=== PATIENT | male | born 1960 | race Caucasian/White ===

== ENCOUNTER → 2017-03-22 | Outpatient (CLI) | payer OTHER ==
[~2017-03-22] MED LIST: DEXL60CA PO; HYDR-3240 PO; LANS30CA PO; MAGN250T8 PO; MELO-184 PO; OLME40TA PO; RANI150T8 PO
[2017-03-22 07:44] LABS: ASPARTATE AMINO TRANSFERASE 19 U/L (15-37); BLOOD UREA NITROGEN 24 mg/dL (7-18)
== END | disposition home or self-care (01) ==
LOC: LAB 07:11
PROVIDERS: ATTEND Internal Medicine Cardiovascular Disease
DX: E78.5 Hyperlipidemia, unspecified (principal); I10 Essential (primary) hypertension
CPT/HCPCS: 36415; 80053; 80061

== ENCOUNTER 2017-04-30 08:20 | Emergency (ER) | payer OTHER ==
[~2017-04-30] VITALS: Ht 180.3 cm; Wt 92.0 kg
[2017-04-30] MEDS ORDERED: SODIUM CHLORIDE 0.9% 1,000 ML IV ONE (08:43)
[2017-04-30] MEDS ORDERED: SODIUM CHLORIDE 0.9% 1,000ML IVBOLUS ONE (09:00)
[2017-04-30] MEDS ORDERED: CEFTAROLINE 600 MG in SODIUM CHLORIDE 0.9% 100 ML IV ONE (09:00)
[2017-04-30 09:27] LABS: BLOOD UREA NITROGEN 20 mg/dL (7-18)
[2017-04-30] MEDS ORDERED: HYDROcodone/APAP 5/325 TABLET ONE (09:36)
[2017-04-30] MEDS ORDERED: HYDROcodone/APAP 5/325 TABLET PO ONE (10:00)
[2017-04-30 11:05] VITALS: BP 127/70
== END 2017-04-30 11:07 | disposition home or self-care (01) ==
LOC: ED 08:46
DX: L03.114 Cellulitis of left upper limb (principal); I10 Essential (primary) hypertension
CPT/HCPCS: 36415; 73080; 80048; 82040; 85025; 87040; 96365; 99285; J0712; J7030

== ENCOUNTER → 2017-06-24 | Outpatient (CLI) | payer OTHER ==
[~2017-06-24] MED LIST changes: -DEXL60CA PO; +DEXL60CA2 PO; -MELO-184 PO; +MELO15TA24 PO; -OLME40TA PO; +OLME40TA12 PO
== END | disposition home or self-care (01) ==
LOC: LAB 11:48
PROVIDERS: ATTEND Physician Assistant Surgical
DX: N39.0 Urinary tract infection, site not specified (principal)
CPT/HCPCS: 87077; 87086

== ENCOUNTER → 2017-09-04 | Outpatient (CLI) | payer OTHER | END | disposition home or self-care (01) | LOC: LAB 08:47 | PROVIDERS: ATTEND Urology | DX: N39.0 Urinary tract infection, site not specified (principal) | CPT/HCPCS: 87077; 87086; 87186 ==

== ENCOUNTER → 2017-09-20 | Outpatient (CLI) | payer OTHER ==
[2017-09-20 08:36] LABS: ASPARTATE AMINO TRANSFERASE 27 U/L (15-37); BLOOD UREA NITROGEN 26 mg/dL (7-18)
== END | disposition home or self-care (01) ==
LOC: LAB 07:56
PROVIDERS: ATTEND Internal Medicine Cardiovascular Disease
DX: I10 Essential (primary) hypertension (principal); E78.2 Mixed hyperlipidemia
CPT/HCPCS: 36415; 80053; 80061

== ENCOUNTER → 2017-10-31 | Outpatient (CLI) | payer OTHER | END | disposition home or self-care (01) | LOC: CFH 08:10 | PROVIDERS: ATTEND Family Medicine | DX: M75.101 Unspecified rotator cuff tear or rupture of right shoulder, not specified as traumatic (principal); M25.711 Osteophyte, right shoulder; Z98.890 Other specified postprocedural states ==

== ENCOUNTER → 2017-12-11 | Outpatient (CLI) | payer OTHER ==
[2017-12-11 09:44] LABS: ANION GAP 5 mmol/L (5-15); CALCIUM 8.4 mg/dL (8.5-10.1); CHLORIDE 111 mmol/L (98-107); CREATININE 1.25 mg/dL (0.7-1.3)
[2017-12-11 09:48] LABS: PSA SCREEN 1.04 ng/mL (0.00-4.00)
== END | disposition home or self-care (01) ==
LOC: LAB 09:15
PROVIDERS: ATTEND Urology
DX: Z12.5 Encounter for screening for malignant neoplasm of prostate (principal)
CPT/HCPCS: 36415; 80048; 87077; 87086; G0103; 87186

== ENCOUNTER 2018-04-18 07:26 | Inpatient (IN) | payer OTHER ==
[~2018-04-18] VITALS: Ht 180.3 cm; Wt 94.0 kg
[~2018-04-18 07:26] MED LIST changes: +RANI150T23 PO; -RANI150T8 PO
[2018-04-18] MEDS ORDERED: SODIUM CHLORIDE FLUSH 10ML SYR IVF ONE (08:00)
[2018-04-18] MEDS ORDERED: MORPHINE SULFATE 4 MG/ML, 1ML IVPush PRN ×2 (08:00→12:00)
[2018-04-18] MEDS ORDERED: SODIUM CHLORIDE 0.9% 1,000ML IV ONE (08:00)
[2018-04-18] MEDS ORDERED: ONDANSETRON ODT 4 MG PO ONE (08:00)
[2018-04-18] MEDS ORDERED: ONDANSETRON ODT 4 MG ONE (08:01)
[2018-04-18] MEDS ORDERED: MORPHINE SULFATE 4 MG/ML, 1ML ONE (08:02)
[2018-04-18] MEDS ORDERED: CYCL-259 PO (08:30)
[2018-04-18] MEDS ORDERED: ASPI1TAB31 PO (08:30)
[2018-04-18] MEDS ORDERED: [UNRECOGNIZED DRUG - OTHER] PO (08:30)
[2018-04-18 08:45] LABS: BASOPHILS # (AUTO) 0.01 x10^3/uL (0-0.1); BASOPHILS % (AUTO) 0 % (0-1); EOSINOPHILS # (AUTO) 0.04 x10^3/uL (0-0.4); EOSINOPHILS % (AUTO) 0 % (1-7); LYMPHOCYTES # (AUTO) 0.45 x10^3/uL (1-3.4); LYMPHOCYTES % (AUTO) 4 % (22-44); MD NO; MEAN CORPUSCULAR HEMOGLOBIN 30.8 pg (27.5-34.5); MEAN CORPUSCULAR HGB CONC 34.6 g/dL (33.2-36.2); MEAN CORPUSCULAR VOLUME 89.1 fL (81-97); MEAN PLATELET VOLUME 7.8 fL (7.4-10.4); MONOCYTES # (AUTO) 0.58 x10^3/uL (0.2-0.8); MONOCYTES % (AUTO) 5 % (2-9); NEUTROPHILS # (AUTO) 10.85 x10^3/uL (1.8-6.8); NEUTROPHILS % (AUTO) 91 % (42-75); PLATELET COUNT 171 x10^3/uL (130-400); RED BLOOD COUNT 5.04 x10^6/uL (4.38-5.82); RED CELL DISTRIBUTION WIDTH 13.3 % (9.4-14.8)
[2018-04-18 08:48] LABS: CULTURE INDICATED? YES; MICROSCOPIC INDICATED
[2018-04-18 08:54] LABS: ALANINE AMINOTRANSFERASE 37 U/L (12-78); ALBUMIN 3.7 g/dL (3.4-5.0); ANION GAP 8 mmol/L (5-15); CALCIUM 9.3 mg/dL (8.5-10.1); CHLORIDE 103 mmol/L (98-107)
[2018-04-18 08:56] LABS: ALKALINE PHOSPHATASE 100 U/L (45-117); BILIRUBIN,TOTAL 1.4 mg/dL (0.2-1.0); TOTAL PROTEIN 8.3 g/dL (6.4-8.2)
[2018-04-18] MEDS ORDERED: CEFTRIAXONE PMX 1GM/50ML 50 ML ONE (09:07)
[2018-04-18] MEDS ORDERED: CEFTRIAXONE 1,000 MG in SODIUM CHLORIDE 0.9% 50 ML IV ONE ×2 (09:30)
[2018-04-18] MEDS ORDERED: HYDROmorphone 1 MG/ML, 1ML IV ONE (09:30)
[2018-04-18] MEDS ORDERED: KETOROLAC 30 MG/1 ML ONE (09:35)
[2018-04-18] MEDS ORDERED: KETOROLAC 30 MG/1 ML IVPush ONE (10:00)
[2018-04-18] MEDS ORDERED: HYDROmorphone 2 MG/ML, 1ML ONE (10:36)
[2018-04-18] MEDS ORDERED: LIDOCAINE-MPF 2% ,5ML ONE (11:35)
[2018-04-18] MEDS ORDERED: PROPOFOL 10 MG/ML, 20ML ONE (11:35)
[2018-04-18] MEDS ORDERED: FENTANYL PF 100 MCG/2ML ONE (11:38)
[2018-04-18] MEDS ORDERED: MIDAZOLAM 1 MG/ML, 2ML ONE (11:38)
[2018-04-18] MEDS ORDERED: CEFTRIAXONE 1,000 MG ONE (11:57)
[2018-04-18] MEDS ORDERED: FENTANYL PF 100 MCG/2ML IV PRN (12:00)
[2018-04-18] MEDS ORDERED: OXYcodone 5 MG/5 ML ORAL.SOL UDC PO PRN (12:00)
[2018-04-18] MEDS ORDERED: DICLOFENAC 50 MG TABLET.DR PO PRN (12:00)
[2018-04-18] MEDS ORDERED: METOPROLOL 1 MG/ML, 5ML IV PRN (12:00)
[2018-04-18] MEDS ORDERED: PROMETHAZINE 25 MG/ML, 1ML IV PRN (12:00)
[2018-04-18] MEDS ORDERED: DOCUSATE 100 MG CAPSULE PO PRN (12:00)
[2018-04-18] MEDS ORDERED: LABETALOL 5MG/ML, 20ML IV PRN (12:00)
[2018-04-18] MEDS ORDERED: EPHEDRINE 50 MG/ML, 1ML IVPush PRN (12:00)
[2018-04-18] MEDS ORDERED: ONDANSETRON 2MG/ML, 2ML IVPush PRN (12:00)
[2018-04-18] MEDS ORDERED: ONDANSETRON ODT 4 MG PO PRN (12:00)
[2018-04-18] MEDS ORDERED: ALBUTEROL SULFATE 2.5 MG/3 ML NPPB PRN (12:00)
[2018-04-18] MEDS ORDERED: ONDANSETRON ODT 8 MG PO PRN (12:00)
[2018-04-18] MEDS ORDERED: LABETALOL 5MG/ML, 20ML IVPush PRN (12:00)
[2018-04-18] MEDS ORDERED: MEPERIDINE/PF 25MG/0.5ML IVPush PRN (12:00)
[2018-04-18] MEDS ORDERED: hydrALAzine 20 MG/ML, 1ML IV PRN (12:00)
[2018-04-18] MEDS ORDERED: ACETAMINOPHEN 325 MG TABLET PO PRN ×2 (12:00)
[2018-04-18] MEDS ORDERED: DEXAMETHASONE 4 MG/ML, 1ML ONE (12:06)
[2018-04-18] MEDS ORDERED: METOCLOPRAMIDE 5 MG/ML, 2ML ONE (12:06)
[2018-04-18] MEDS ORDERED: ONDANSETRON 2MG/ML, 2ML ONE (12:27)
[2018-04-18] MEDS ORDERED: MEPERIDINE/PF 50 MG/ML ONE (13:31)
[2018-04-18] MEDS ORDERED: OXYcodone 5 MG/5 ML ORAL.SOL UDC ONE (13:52)
[2018-04-18] MEDS: SODIUM CHLORIDE 0.9% 1,000 ML IV SCH ×2 (14:36→20:53)
[2018-04-18] MEDS ORDERED: OMNIPAQUE 350 MG/ML, 50 ML BOTTLE ONE (15:52)
[2018-04-18 19:42] VITALS: BP 116/76
[2018-04-18] MEDS: morphine SULFATE 10 MG/ML, 1ML IVPush PRN (19:49)
[2018-04-19 00:21] VITALS: BP 97/61
[2018-04-19 03:52] VITALS: BP 103/66
[2018-04-19] MEDS: morphine SULFATE 10 MG/ML, 1ML IVPush PRN (04:11)
[2018-04-19] MEDS: SODIUM CHLORIDE 0.9% 1,000 ML IV SCH (04:18)
[2018-04-19 05:21] LABS: ANION GAP 7 mmol/L (5-15); CHLORIDE 109 mmol/L (98-107)
[2018-04-19 05:24] LABS: BASOPHILS % (AUTO) 0 % (0-1); EOSINOPHILS # (AUTO) 0.02 x10^3/uL (0-0.4); EOSINOPHILS % (AUTO) 0 % (1-7); LYMPHOCYTES # (AUTO) 0.52 x10^3/uL (1-3.4); LYMPHOCYTES % (AUTO) 6 % (22-44); MD NO; MEAN CORPUSCULAR HEMOGLOBIN 30.5 pg (27.5-34.5); MEAN CORPUSCULAR HGB CONC 34.1 g/dL (33.2-36.2); MEAN CORPUSCULAR VOLUME 89.3 fL (81-97); MEAN PLATELET VOLUME 7.8 fL (7.4-10.4); MONOCYTES # (AUTO) 0.64 x10^3/uL (0.2-0.8); MONOCYTES % (AUTO) 7 % (2-9); NEUTROPHILS # (AUTO) 7.75 x10^3/uL (1.8-6.8); NEUTROPHILS % (AUTO) 87 % (42-75); PLATELET COUNT 166 x10^3/uL (130-400); RED BLOOD COUNT 3.93 x10^6/uL (4.38-5.82); RED CELL DISTRIBUTION WIDTH 13.7 % (9.4-14.8)
[2018-04-19 07:32] VITALS: BP 98/60
[2018-04-19] MEDS ORDERED: PANTOPROZOLE 40MG TABLET PO SCH (09:00)
[2018-04-19] MEDS ORDERED: CEFTRIAXONE PMX 1GM/50ML 50 ML IV SCH (09:00)
[2018-04-19] MEDS ORDERED: ASA/APAP/ CAFFEINE TABLET PO PRN (09:00)
[2018-04-19] MEDS ORDERED: SENNA/DOCUSATE TABLET PO SCH (09:00)
[2018-04-19] MEDS ORDERED: CEFTRIAXONE 1,000 MG in SODIUM CHLORIDE 0.9% 50 ML IV SCH (09:00)
[2018-04-19] MEDS: VALSARTAN 320 MG TABLET PO SCH ×2 (09:26→09:29)
[2018-04-19] MEDS ORDERED: HYDROcodone/APAP 5/325 TABLET PO PRN (11:30)
[2018-04-19] MEDS ORDERED: SODIUM CHLORIDE 0.9% 1,000 ML IV SCH (11:37)
[2018-04-19] MEDS ORDERED: TRAM50TA2 PO (12:49)
[2018-04-19] MEDS ORDERED: CIPR500T87 PO (12:49)
[2018-04-19 13:30] VITALS: BP 107/66
[2018-04-19] MEDS ORDERED: CIPROFLOXACIN 500 MG TABLET PO SCH (21:00)
== END 2018-04-19 13:32 | disposition home or self-care (01) | DRG 690 ==
LOC: ED 08:14 → EDIP 11:01 → 4NOR 14:23
PROVIDERS: ADMIT Hospitalist; ATTEND Hospitalist
PROC: BT1F1ZZ Fluoroscopy of Left Kidney, Ureter and Bladder using Low Osmolar Contrast (ICD-10-PCS; 2018-04-18)
PROC: 0T778DZ Dilation of Left Ureter with Intraluminal Device, Via Natural or Artificial Opening Endoscopic (ICD-10-PCS; principal; 2018-04-18 12:00)
DX: N13.6 Pyonephrosis (principal); E78.5 Hyperlipidemia, unspecified; N10 Acute pyelonephritis; I10 Essential (primary) hypertension; K21.9 Gastro-esophageal reflux disease without esophagitis; K44.9 Diaphragmatic hernia without obstruction or gangrene; K59.00 Constipation, unspecified; N26.1 Atrophy of kidney (terminal); N31.9 Neuromuscular dysfunction of bladder, unspecified; Z90.49 Acquired absence of other specified parts of digestive tract; D49.2 Neoplasm of unspecified behavior of bone, soft tissue, and skin; Z88.2 Allergy status to sulfonamides; Z88.8 Allergy status to other drugs, medicaments and biological substances
CPT/HCPCS: 36415; 74176; 74420; 80048; 80053; 81001; 83605; 83690; 84145; 85025; 87040; 87077; 87086; 87186; J0696; J1100; J1170; J1885; J2175; J2250; J2405; J2704; J3010; J3490; Q0162; Q9967; C1758; C1769; C2617; J2270; J2765; J7030

== ENCOUNTER → 2018-05-22 | Outpatient (CLI) | payer OTHER ==
[~2018-05-22] MED LIST changes: +ASPI1TAB31 PO; +CEFAZOLIN 1,000 MG ONE; +CIPR500T87 PO; +CYCL-259 PO; +DEXAMETHASONE 4 MG/ML, 1ML ONE; +DICL75TA2 PO; +FENTANYL PF 100 MCG/2ML ONE; +KETOROLAC 30 MG/1 ML ONE; +ONDANSETRON 2MG/ML, 2ML ONE; +PROPOFOL 10 MG/ML, 20ML ONE; +TRAM50TA2 PO; +[UNRECOGNIZED DRUG - OTHER] PO
[2018-05-22 09:27] LABS: MICROSCOPIC AUTO
[2018-05-22 09:36] LABS: ALANINE AMINOTRANSFERASE 62 U/L (12-78); ALBUMIN 4.1 g/dL (3.4-5.0); ANION GAP 11 mmol/L (5-15); CALCIUM 8.5 mg/dL (8.5-10.1); CHLORIDE 108 mmol/L (98-107); CREATININE 1.11 mg/dL (0.7-1.3)
[2018-05-22 09:40] LABS: ALKALINE PHOSPHATASE 74 U/L (45-117); BILIRUBIN,TOTAL 0.7 mg/dL (0.2-1.0); PSA SCREEN 1.23 ng/mL (0.00-4.00); TOTAL PROTEIN 8.2 g/dL (6.4-8.2)
== END | disposition home or self-care (01) ==
LOC: STAR 08:41
PROVIDERS: ATTEND Urology
DX: Z01.818 Encounter for other preprocedural examination (principal); N20.0 Calculus of kidney
CPT/HCPCS: 36415; 80053; 81001; 87077; 87086; 87186; 93005; G0103

== ENCOUNTER 2018-05-27 11:59 | Day surgery (SDC) | payer OTHER ==
[~2018-05-27] VITALS: Ht 180.3 cm; Wt 89.0 kg
[~2018-05-27 11:59] MED LIST changes: -CEFAZOLIN 1,000 MG ONE; -DEXAMETHASONE 4 MG/ML, 1ML ONE; -FENTANYL PF 100 MCG/2ML ONE; -KETOROLAC 30 MG/1 ML ONE; -ONDANSETRON 2MG/ML, 2ML ONE; -PROPOFOL 10 MG/ML, 20ML ONE
[2018-05-27] MEDS ORDERED: LACTATED RINGERS 1,000 ML IV SCH (12:26)
[2018-05-27 12:44] VITALS: BP 156/95
[2018-05-27] MEDS ORDERED: MIDAZOLAM 1 MG/ML, 2ML ONE (13:03)
[2018-05-27] MEDS ORDERED: FENTANYL PF 100 MCG/2ML ONE ×2 (13:04→14:42)
[2018-05-27] MEDS ORDERED: CEFAZOLIN 1,000 MG ONE ×2 (13:06)
[2018-05-27] MEDS ORDERED: PROPOFOL 10 MG/ML, 20ML ONE ×2 (13:06)
[2018-05-27] MEDS ORDERED: ONDANSETRON 2MG/ML, 2ML ONE (13:32)
[2018-05-27] MEDS ORDERED: DEXAMETHASONE 4 MG/ML, 1ML ONE (13:32)
[2018-05-27] MEDS ORDERED: CEFTRIAXONE 1,000 MG ONE (13:45)
[2018-05-27] MEDS ORDERED: GENTAMICIN 80 MG/2 ML ONE (13:45)
[2018-05-27] MEDS ORDERED: ACETAMINOPHEN 325 MG TABLET PO PRN (14:30)
[2018-05-27] MEDS ORDERED: OXYcodone 5 MG/5 ML ORAL.SOL UDC PO PRN (14:30)
[2018-05-27] MEDS ORDERED: PROMETHAZINE 25 MG/ML, 1ML IV PRN (14:30)
[2018-05-27] MEDS ORDERED: ACETAMINOPHEN 650 MG/20.3 ML UDC ONE (14:42)
[2018-05-27] MEDS ORDERED: OXYcodone 5 MG/5 ML ORAL.SOL UDC ONE (14:42)
[2018-05-27] MEDS ORDERED: ACETAMINOPHEN 325 MG TABLET ONE (14:42)
[2018-05-27] MEDS: FENTANYL PF 100 MCG/2ML IV PRN ×3 (14:46→15:29)
[2018-05-27] MEDS ORDERED: MEPERIDINE/PF 50 MG/ML ONE (14:51)
[2018-05-27] MEDS: MEPERIDINE/PF 25MG/0.5ML IVPush PRN ×2 (14:59→15:23)
[2018-05-27] MEDS ORDERED: HYDROcodone/APAP 5/325 TABLET PO PRN (15:00)
[2018-05-27] MEDS ORDERED: OMNIPAQUE 350 MG/ML, 50 ML BOTTLE ONE (16:10)
== END 2018-05-27 17:20 | disposition home or self-care (01) ==
LOC: OUT 11:59
PROVIDERS: ATTEND Urology
DX: N20.0 Calculus of kidney (principal); I10 Essential (primary) hypertension; K21.9 Gastro-esophageal reflux disease without esophagitis; E78.5 Hyperlipidemia, unspecified; Z88.1 Allergy status to other antibiotic agents; Z85.828 Personal history of other malignant neoplasm of skin; Z98.890 Other specified postprocedural states; Z79.899 Other long term (current) drug therapy; Z90.49 Acquired absence of other specified parts of digestive tract; Z88.8 Allergy status to other drugs, medicaments and biological substances; Z87.440 Personal history of urinary (tract) infections
CPT/HCPCS: 52310; 74420; C1769; J0690; J0696; J1100; J1580; J1885; J2175; J2250; J2405; J2704; J3010; J7120; Q9967

== ENCOUNTER → 2018-06-05 | Outpatient (CLI) | payer OTHER | END | disposition home or self-care (01) | LOC: RAD 08:59 | PROVIDERS: ATTEND Urology | DX: N20.0 Calculus of kidney (principal); Z88.2 Allergy status to sulfonamides | CPT/HCPCS: 74018 ==

== ENCOUNTER → 2018-09-24 | Outpatient (CLI) | payer OTHER ==
[2018-09-24 08:56] LABS: ALANINE AMINOTRANSFERASE 41 U/L (12-78); ALBUMIN 4.1 g/dL (3.4-5.0); ANION GAP 9 mmol/L (5-15); CALCIUM 8.5 mg/dL (8.5-10.1); CHLORIDE 111 mmol/L (98-107); CREATININE 1.01 mg/dL (0.7-1.3)
[2018-09-24 08:58] LABS: ALKALINE PHOSPHATASE 71 U/L (45-117); BILIRUBIN,TOTAL 0.7 mg/dL (0.2-1.0); TOTAL PROTEIN 7.4 g/dL (6.4-8.2)
== END | disposition home or self-care (01) ==
LOC: STAR 07:17
PROVIDERS: ATTEND Orthopaedic Surgery
DX: Z01.818 Encounter for other preprocedural examination (principal); M19.012 Primary osteoarthritis, left shoulder
CPT/HCPCS: 36415; 80053; 93005

== ENCOUNTER → 2018-11-25 | Outpatient (CLI) | payer OTHER ==
[~2018-11-25] MED LIST changes: -DICL75TA2 PO; +DICL75TA3 PO
[2018-11-25 13:54] LABS: ALANINE AMINOTRANSFERASE 56 U/L (12-78); ALBUMIN 4.1 g/dL (3.4-5.0); ANION GAP 6 mmol/L (5-15); CHLORIDE 110 mmol/L (98-107)
[2018-11-25 13:59] LABS: ALKALINE PHOSPHATASE 88 U/L (45-117); BILIRUBIN,TOTAL 0.7 mg/dL (0.2-1.0); CHOL/HDL RATIO 4.2; CHOLESTEROL, TOTAL 216 mg/dL (140-239); HDL CHOL % 24 % (26-37); HDL CHOLESTEROL (DIRECT) 51 mg/dL (40-60); LDL CHOLESTEROL,CALCULATED 134 mg/dL (54-169); LDL/HDL RATIO 2.6 (0.5-3.0); PSA SCREEN 0.91 ng/mL (0.00-4.00); TOTAL PROTEIN 7.7 g/dL (6.4-8.2); TRIGLYCERIDES 157 mg/dL (50-200); VLDL CHOLESTEROL 31 mg/dL (0-25)
== END | disposition home or self-care (01) ==
LOC: CFH 08:32
PROVIDERS: ATTEND Internal Medicine
DX: I10 Essential (primary) hypertension (principal); E78.2 Mixed hyperlipidemia; N40.1 Benign prostatic hyperplasia with lower urinary tract symptoms; Z80.42 Family history of malignant neoplasm of prostate
CPT/HCPCS: 36415; 80053; 80061; G0103

== ENCOUNTER → 2019-01-13 | Outpatient (CLI) | payer OTHER ==
[~2019-01-13] MED LIST changes: +GADOBUTROL 10 MMOL/10 ML PFS ONE
== END | disposition home or self-care (01) ==
LOC: EDSTATUS 01-04 08:00 → CFH 09:33
PROVIDERS: ATTEND Family Medicine
DX: M51.36 Other intervertebral disc degeneration, lumbar region (principal); M48.061 Spinal stenosis, lumbar region without neurogenic claudication; M51.26 Other intervertebral disc displacement, lumbar region; M25.78 Osteophyte, vertebrae; G95.89 Other specified diseases of spinal cord
CPT/HCPCS: 72158; 82565; A9585

== ENCOUNTER → 2019-03-24 | Outpatient (CLI) | payer OTHER ==
[~2019-03-24] MED LIST changes: -GADOBUTROL 10 MMOL/10 ML PFS ONE
== END | disposition home or self-care (01) ==
LOC: CFH 08:11
PROVIDERS: ATTEND Orthopaedic Surgery
DX: M51.37 Other intervertebral disc degeneration, lumbosacral region (principal); M43.16 Spondylolisthesis, lumbar region; M47.27 Other spondylosis with radiculopathy, lumbosacral region; Z88.1 Allergy status to other antibiotic agents; Z88.8 Allergy status to other drugs, medicaments and biological substances
CPT/HCPCS: 72120

== ENCOUNTER 2019-05-22 13:36 | Observation (INO) | payer OTHER ==
[~2019-05-22] VITALS: Ht 180.3 cm; Wt 91.3 kg
[~2019-05-22 13:36] MED LIST changes: +RANI-467 PO; -RANI150T23 PO
--- NOTE | 2019-05-22 13:50 | NUR ---
PT AMBULATORY TO ED ROOM 26; GAIT STEADY.
--- NOTE | 2019-05-22 13:53 | NUR ---
DR BARRETT BS FOR EXAM. PT'S SPOUSE IN ROOM. PT A&OX4, RESP EVEN & UNLABORED, SPEECH CLEAR, FACE FLUSHED. VO DR BARRETT: REPEAT EKG
[2019-05-22] MEDS ORDERED: DICL-249 PO (14:00)
--- NOTE | 2019-05-22 14:04 | NUR ---
PT C/O INTERMITTENT SHARP, CRAMPING LT CHEST. STARTED EARLY THIS AM AFTER RETURNING FROM WORK. ADMITS TO HAVING A STRESSFUL TIME RECENTLY. DENIES NAUSEA/VOMITING. TOOK A BITE OF ASA 325MG TAB 1315. CARDIAC & VS MONITORING EQUIPMENT ON. SIDE RAILS UP X 2, CALL LIGHT W/IN REACH.
[2019-05-22] MEDS ORDERED: MORPHINE SULFATE 4 MG/ML, 1ML IVPush PRN (14:30)
[2019-05-22] MEDS ORDERED: ONDANSETRON 2MG/ML, 2ML IVPush ONE (14:30)
[2019-05-22] MEDS ORDERED: SODIUM CHLORIDE FLUSH 10ML SYR IVF ONE (14:30)
[2019-05-22 14:31] LABS: BASOPHILS # (AUTO) 0.03 x10^3/uL (0-0.1); BASOPHILS % (AUTO) 1 % (0-1); EOSINOPHILS # (AUTO) 0.17 x10^3/uL (0-0.4); EOSINOPHILS % (AUTO) 2 % (1-7); LYMPHOCYTES # (AUTO) 1.46 x10^3/uL (1-3.4); LYMPHOCYTES % (AUTO) 21 % (22-44); MD NO; MEAN CORPUSCULAR HEMOGLOBIN 31.4 pg (27.5-34.5); MEAN CORPUSCULAR VOLUME 92.4 fL (81-97); MEAN PLATELET VOLUME 8.4 fL (7.4-10.4); MONOCYTES # (AUTO) 0.48 x10^3/uL (0.2-0.8); MONOCYTES % (AUTO) 7 % (2-9); NEUTROPHILS # (AUTO) 4.74 x10^3/uL (1.8-6.8); NEUTROPHILS % (AUTO) 69 % (42-75); PLATELET COUNT 187 x10^3/uL (130-400); RED BLOOD COUNT 4.89 x10^6/uL (4.38-5.82); RED CELL DISTRIBUTION WIDTH 14.4 % (9.4-14.8)
[2019-05-22] MEDS ORDERED: MORPHINE SULFATE 4 MG/ML, 1ML ONE (14:40)
[2019-05-22] MEDS ORDERED: ONDANSETRON 2MG/ML, 2ML ONE (14:40)
[2019-05-22 14:42] LABS: ALBUMIN 4.2 g/dL (3.4-5.0); CALCIUM 8.7 mg/dL (8.5-10.1)
[2019-05-22 14:46] LABS: CREATININE 1.29 mg/dL (0.7-1.3); TROPONIN I < 0.015 ng/mL (0.000-0.045)
[2019-05-22 14:59] LABS: ANION GAP 7 mmol/L (5-15); CHLORIDE 111 mmol/L (98-107)
--- NOTE | 2019-05-22 15:12 | NUR ---
DR BARRETT BS DISCUSSING TEST RESULTS. SPOUSE IN ROOM.
[2019-05-22] MEDS ORDERED: MAALOX/HYOSCYAMINE/LIDOCAINE 45 ML BTL PO ONE (15:30)
[2019-05-22] MEDS ORDERED: MAALOX/HYOSCYAMINE/LIDOCAINE 45 ML BTL ONE (15:53)
--- NOTE | 2019-05-22 16:34 | NUR ---
[facility] AND SPOUSE IN ROOM. PT RESTING COMFORTABLE, SITTING UP. PAIN 3-4/10 INTERMITTINGLY CP. CALL LIGHT WITHIN REACH.
[2019-05-22] MEDS ORDERED: morphine SULFATE 10 MG/ML, 1ML IVPush PRN (17:00)
[2019-05-22] MEDS ORDERED: SODIUM CHLORIDE FLUSH 10ML SYR IVF PRN (17:00)
[2019-05-22] MEDS ORDERED: ONDANSETRON 2MG/ML, 2ML IVPush PRN (17:00)
[2019-05-22] MEDS ORDERED: CYCLOBENZAPRINE 10 MG TABLET PO PRN (17:00)
[2019-05-22] MEDS ORDERED: ACETAMINOPHEN 325 MG TABLET PO PRN (17:00)
[2019-05-22] MEDS ORDERED: NITROGLYCERIN 0.4 MG BOTTLE (25 TABS) SL PRN (17:00)
[2019-05-22] MEDS ORDERED: hydrALAzine 20 MG/ML, 1ML IVPush PRN (17:00)
[2019-05-22] MEDS ORDERED: ENOXAPARIN 40 MG/0.4 ML SQ SCH (17:00)
[2019-05-22] MEDS ORDERED: TEMAZEPAM 15 MG CAPSULE PO PRN (17:00)
--- NOTE | 2019-05-22 17:24 | NUR ---
report given to break patrick hidalgo/erma. pt care transfered.
--- NOTE | 2019-05-22 18:02 | NUR ---
called report to FARAZ ROWE, going to room #528. VSS.
[2019-05-22 19:21] VITALS: BP 127/80
[2019-05-22 20:40] LABS: TROPONIN I < 0.015 ng/mL (0.000-0.045)
[2019-05-23 00:40] VITALS: BP 111/67
[2019-05-23 02:37] LABS: TROPONIN I < 0.015 ng/mL (0.000-0.045)
[2019-05-23 02:42] LABS: CHOL/HDL RATIO 3.1; LDL/HDL RATIO 1.7 (0.5-3.0)
[2019-05-23 06:35] VITALS: BP 125/82
[2019-05-23] MEDS ORDERED: PANTOPROZOLE 40MG TABLET PO SCH (09:00)
[2019-05-23] MEDS ORDERED: LOSARTAN 50MG TABLET PO SCH (09:00)
[2019-05-23] MEDS ORDERED: REGADENOSON 0.4 MG/5 ML SYRINGE ONE (09:35)
[2019-05-23 13:05] VITALS: BP 127/81
[2019-05-23] MEDS ORDERED: OMEP-110 PO (14:00)
[2019-05-23] MEDS ORDERED: SIMV40TA3 PO (14:00)
[2019-05-23] MEDS ORDERED: SIMVASTATIN 40 MG TABLET PO SCH (21:00)
== END 2019-05-23 16:05 | disposition home or self-care (01) ==
LOC: ED 14:45 → SUATTDRO 16:03 → EDIP 16:49 → INTOOBSV 17:19 → UNDOADMOB 17:19 → EDIP 17:31 → 5SO 17:31 → UNDODISOB 05-23 16:05
PROVIDERS: ADMIT Internal Medicine; ATTEND Internal Medicine
DX: R07.89 Other chest pain (principal); N31.9 Neuromuscular dysfunction of bladder, unspecified; I10 Essential (primary) hypertension; K21.9 Gastro-esophageal reflux disease without esophagitis; Z90.49 Acquired absence of other specified parts of digestive tract; R73.02 Impaired glucose tolerance (oral); Z95.5 Presence of coronary angioplasty implant and graft; Z87.442 Personal history of urinary calculi; Z79.82 Long term (current) use of aspirin; Z79.899 Other long term (current) drug therapy; Z88.2 Allergy status to sulfonamides; Z88.6 Allergy status to analgesic agent
CPT/HCPCS: 36415; 71045; 78452; 80048; 80061; 82040; 84443; 84484; 85025; 93005; 93017; 96372; 96374; 96375; 99284; A9502; C9898; G0378; J1650; J2270; J2405; J2785

== ENCOUNTER → 2020-02-04 | Outpatient (CLI) | payer OTHER ==
[~2020-02-04] MED LIST changes: +DICL-249 PO; +OMEP-110 PO; +SIMV40TA20 PO
== END | disposition home or self-care (01) ==
LOC: CFH 07:19
PROVIDERS: ATTEND Nurse Practitioner Family
DX: M51.37 Other intervertebral disc degeneration, lumbosacral region (principal)
CPT/HCPCS: 72110

== ENCOUNTER 2020-02-25 13:14 | Emergency (ER) | payer OTHER ==
[~2020-02-25] VITALS: Ht 180.3 cm; Wt 90.0 kg
--- NOTE | 2020-02-25 13:40 | NUR ---
PT SENT FROM GI DOCTOR AFTER EGD AND CLONOSCOPY. PROCEDURE WENT WELL, WHEN PT WOKE UP HE HAD SEVERE ABD PAIN AND VOMITTING. PT C/O GAS PAIN, NOT PASSING GAS OR BELCHING. PT GIVEN ZOFRAN AT ABOUT 1030. PT CONNECTED TO MONITORING. PIV PLACE, LABS DRAWN. (RN) AT BEDSIDE. PROVIDER AT BEDSIDE.
[2020-02-25] MEDS ORDERED: ONDANSETRON 2MG/ML, 2ML IVPush ONE (14:00)
[2020-02-25] MEDS ORDERED: morphine SULFATE 10 MG/ML, 1ML IV ONE (14:00)
[2020-02-25] MEDS ORDERED: MORPHINE SULFATE 4 MG/ML, 1ML ONE (14:13)
[2020-02-25] MEDS ORDERED: ONDANSETRON 2MG/ML, 2ML ONE (14:13)
--- NOTE | 2020-02-25 14:24 | NUR ---
MEDS ADMIN PER DEC. EKG DONE. PT WRECHING PERIODICALLY, THERE'S NOTHING TO VOMIT UP. AT BEDSIDE.
[2020-02-25 14:28] LABS: BASOPHILS # (AUTO) 0.03 x10^3/uL (0-0.1); BASOPHILS % (AUTO) 1 % (0-1); EOSINOPHILS # (AUTO) 0.07 x10^3/uL (0-0.4); EOSINOPHILS % (AUTO) 1 % (1-7); LYMPHOCYTES # (AUTO) 0.91 x10^3/uL (1-3.4); LYMPHOCYTES % (AUTO) 14 % (22-44); MD NO; MEAN CORPUSCULAR HEMOGLOBIN 30.4 pg (27.5-34.5); MEAN CORPUSCULAR VOLUME 89.6 fL (81-97); MEAN PLATELET VOLUME 8.6 fL (7.4-10.4); MONOCYTES # (AUTO) 0.27 x10^3/uL (0.2-0.8); MONOCYTES % (AUTO) 4 % (2-9); NEUTROPHILS # (AUTO) 5.29 x10^3/uL (1.8-6.8); NEUTROPHILS % (AUTO) 81 % (42-75); PLATELET COUNT 184 x10^3/uL (130-400); RED BLOOD COUNT 5.25 x10^6/uL (4.38-5.82); RED CELL DISTRIBUTION WIDTH 14.6 % (9.4-14.8)
[2020-02-25 14:29] LABS: INTERNATIONAL NORMALIZED RATIO 0.98 (0.93-1.1); PROTHROMBIN TIME 10.4 Seconds (9.6-11.5)
[2020-02-25 14:33] LABS: ALBUMIN 4.4 g/dL (3.4-5.0); ANION GAP 8 mmol/L (5-15); CALCIUM 8.9 mg/dL (8.5-10.1); CHLORIDE 111 mmol/L (98-107); CREATININE 0.99 mg/dL (0.7-1.3)
--- NOTE | 2020-02-25 14:34 | NUR ---
PT PLACED ON 2L OXYGEN VIA NC FOR SAFETY AFTER PAIN POOL COORDINATOR.
[2020-02-25 14:38] LABS: ALANINE AMINOTRANSFERASE 60 U/L (12-78); ALKALINE PHOSPHATASE 90 U/L (45-117); BILIRUBIN,TOTAL 1.1 mg/dL (0.2-1.0); TOTAL PROTEIN 7.9 g/dL (6.4-8.2); TROPONIN I < 0.015 ng/mL (0.000-0.045)
[2020-02-25] MEDS ORDERED: OMNIPAQUE 350 MG/ML, 100ML BOTTLE ONE (15:13)
--- NOTE | 2020-02-25 15:14 | NUR ---
PT BACK FROM CT. PT STATES PAIN IS BETTER AFTER PAIN MEDS. NADN. AT BEDSIDE.
--- NOTE | 2020-02-25 15:27 | NUR ---
ALL RESULTS ARE BACK AT THIS TIME. CHART UP FOR RECHECK.
--- NOTE | 2020-02-25 16:00 | NUR ---
MD AT BEDSIDE TO UPDATE PT ON POC.
[2020-02-25] MEDS ORDERED: MAALOX/HYOSCYAMINE/LIDOCAINE 45 ML BTL ONE (16:17)
--- NOTE | 2020-02-25 16:25 | NUR ---
MEDS ADMIN PER DEC. PT GIVEN CUP OF WATER FOR PO CHALLENGE.
[2020-02-25] MEDS ORDERED: MAALOX/HYOSCYAMINE/LIDOCAINE 45 ML BTL PO ONE (16:30)
--- NOTE | 2020-02-25 16:52 | NUR ---
PT ABLE TO TOLERATE KEEPING A CUP OF WATER DOWN. PASSED PO CHALLENGE.
[2020-02-25] MEDS ORDERED: METOCLOPRAMIDE 5 MG/ML, 2ML IVPush ONE (17:30)
[2020-02-25] MEDS ORDERED: METOCLOPRAMIDE 5 MG/ML, 2ML ONE (17:41)
[2020-02-25 17:46] VITALS: BP 126/81
--- NOTE | 2020-02-25 17:47 | NUR ---
PT SITTING EDGE OF BED WITH DRY HEAVES. PROVIDER AWARE. MEDS ADMIN PER DEC. AT BEDSIDE.
== END 2020-02-25 19:44 | disposition home or self-care (01) ==
LOC: ED 15:19
DX: R10.84 Generalized abdominal pain (principal); R11.2 Nausea with vomiting, unspecified; R94.31 Abnormal electrocardiogram [ECG] [EKG]; M54.9 Dorsalgia, unspecified
CPT/HCPCS: 36415; 71260; 74177; 80053; 84484; 85025; 85610; 93005; 96374; 96375; 99285; J2270; J2405; J2765; Q9967

== ENCOUNTER → 2020-04-13 | Outpatient (CLI) | payer OTHER ==
[2020-04-13 13:33] LABS: ANION GAP 7 mmol/L (5-15); CALCIUM 9.5 mg/dL (8.5-10.1); CHLORIDE 109 mmol/L (98-107)
[2020-04-13 13:34] LABS: CREATININE 1.21 mg/dL (0.7-1.3)
== END | disposition home or self-care (01) ==
LOC: CFH 07:07
PROVIDERS: ATTEND Internal Medicine Cardiovascular Disease
DX: E78.2 Mixed hyperlipidemia (principal); R07.9 Chest pain, unspecified; I10 Essential (primary) hypertension
CPT/HCPCS: 36415; 80048

== ENCOUNTER 2020-04-28 07:53 | Outpatient (CLI) | payer OTHER ==
[2020-04-28] MEDS ORDERED: LANS30CA PO (08:30)
[2020-04-28] MEDS ORDERED: GABA-826 PO (08:30)
[2020-04-28 09:23] LABS: BASOPHILS # (AUTO) 0.03 x10^3/uL (0-0.1); BASOPHILS % (AUTO) 1 % (0-1); EOSINOPHILS # (AUTO) 0.19 x10^3/uL (0-0.4); EOSINOPHILS % (AUTO) 3 % (1-7); LYMPHOCYTES # (AUTO) 1.28 x10^3/uL (1-3.4); LYMPHOCYTES % (AUTO) 22 % (22-44); MD NO; MEAN CORPUSCULAR HGB CONC 33.2 g/dL (33.2-36.2); MONOCYTES # (AUTO) 0.56 x10^3/uL (0.2-0.8); MONOCYTES % (AUTO) 9 % (2-9); NEUTROPHILS # (AUTO) 3.91 x10^3/uL (1.8-6.8); NEUTROPHILS % (AUTO) 66 % (42-75); PLATELET COUNT 172 x10^3/uL (130-400); RED BLOOD COUNT 5.09 x10^6/uL (4.38-5.82); RED CELL DISTRIBUTION WIDTH 14.1 % (9.4-14.8)
[2020-04-28 09:31] LABS: INTERNATIONAL NORMALIZED RATIO 0.93 (0.93-1.1); PROTHROMBIN TIME 9.8 Seconds (9.6-11.5)
[2020-04-28 09:34] LABS: ALANINE AMINOTRANSFERASE 50 U/L (12-78); ALBUMIN 4.4 g/dL (3.4-5.0); ANION GAP 5 mmol/L (5-15); CALCIUM 9.5 mg/dL (8.5-10.1); CHLORIDE 113 mmol/L (98-107); CREATININE 0.97 mg/dL (0.7-1.3)
[2020-04-28 09:36] LABS: ALKALINE PHOSPHATASE 86 U/L (45-117); BILIRUBIN,TOTAL 0.6 mg/dL (0.2-1.0); TOTAL PROTEIN 7.8 g/dL (6.4-8.2)
[2020-04-28 09:56] LABS: MICROSCOPIC INDICATED
[2020-05-15] MEDS ORDERED: OXYC1TAB18 PO (08:14)
== END 2020-04-28 23:59 | disposition home or self-care (01) ==
LOC: STAR 07:53
PROVIDERS: ATTEND Neurological Surgery
DX: Z01.818 Encounter for other preprocedural examination (principal); S33.140A Subluxation of L4/L5 lumbar vertebra, initial encounter; M48.061 Spinal stenosis, lumbar region without neurogenic claudication; M47.817 Spondylosis without myelopathy or radiculopathy, lumbosacral region; X58.XXXA Exposure to other specified factors, initial encounter; Y93.89 Activity, other specified; Y92.89 Other specified places as the place of occurrence of the external cause; Y99.8 Other external cause status
CPT/HCPCS: 36415; 72110; 80053; 81001; 85025; 85610; 85730; 87077; 87086; 87186

== ENCOUNTER 2020-05-09 08:53 | Inpatient (IN) | payer OTHER ==
[~2020-05-09] VITALS: Ht 180.3 cm; Wt 93.8 kg
[~2020-05-09 08:53] MED LIST changes: +GABA-826 PO
[2020-05-09] MEDS ORDERED: CHLORHEXIDINE 15 ML UDC MM STA (09:11)
[2020-05-09] MEDS ORDERED: LIDOCAINE-MPF 1%, 2ML INFIL STA (09:11)
[2020-05-09] MEDS ORDERED: LACTATED RINGERS 1,000 ML IV SCH (09:11)
[2020-05-09] MEDS ORDERED: HEPARIN 1,000 UNITS/ML, 30ML ONE (09:29)
[2020-05-09] MEDS ORDERED: BUPIVACAINE/PF-EPI 0.5% 1:200K ONE (09:29)
[2020-05-09] MEDS ORDERED: BACITRACIN 50,000 UNIT ONE (09:30)
[2020-05-09 09:36] VITALS: BP 146/99
[2020-05-09] MEDS ORDERED: GABAPENTIN 300 MG CAPSULE PO STA (10:58)
[2020-05-09] MEDS ORDERED: ACETAMINOPHEN 500 MG TABLET PO STA (10:58)
[2020-05-09] MEDS ORDERED: GABAPENTIN 300 MG CAPSULE ONE (10:59)
[2020-05-09] MEDS ORDERED: ACETAMINOPHEN 500 MG TABLET ONE (10:59)
[2020-05-09] MEDS ORDERED: morphine SULFATE 10 MG/ML, 1ML IVPush PRN (12:00)
[2020-05-09] MEDS ORDERED: OXYcodone 5 MG/5 ML ORAL.SOL UDC PO PRN (12:00)
[2020-05-09] MEDS ORDERED: LABETALOL 5MG/ML, 20ML IV PRN (12:00)
[2020-05-09] MEDS ORDERED: HALOPERIDOL 5 MG/ML IV PRN (12:00)
[2020-05-09] MEDS ORDERED: hydrALAzine 20 MG/ML, 1ML IV PRN (12:00)
[2020-05-09] MEDS ORDERED: MEPERIDINE/PF 25MG/0.5ML IVPush PRN (12:00)
[2020-05-09] MEDS ORDERED: PROMETHAZINE 25 MG/ML, 1ML IVPush PRN (12:00)
[2020-05-09] MEDS ORDERED: BUPIVACAINE/PF-EPI 0.5% 1:200K INFIL ONE (12:20)
[2020-05-09] MEDS ORDERED: HEPARIN 1,000 UNITS/ML, 30ML IVPB ONE (12:20)
[2020-05-09] MEDS ORDERED: BACITRACIN 50,000 UNIT IRRIG ONE (12:20)
[2020-05-09] MEDS ORDERED: ROCURONIUM 10 MG/ML,10ML ONE (13:00)
[2020-05-09] MEDS ORDERED: FENTANYL PF 250 MCG/5ML ONE (13:00)
[2020-05-09] MEDS ORDERED: METOCLOPRAMIDE 5 MG/ML, 2ML ONE (13:00)
[2020-05-09] MEDS ORDERED: PROPOFOL 10 MG/ML, 20ML ONE (13:00)
[2020-05-09] MEDS ORDERED: ONDANSETRON 2MG/ML, 2ML ONE (13:00)
[2020-05-09] MEDS ORDERED: PHENYLEPHRINE 10 MG/ML ONE (13:00)
[2020-05-09] MEDS ORDERED: DEXAMETHASONE 4 MG/ML, 1ML ONE (13:00)
[2020-05-09] MEDS ORDERED: PROPOFOL 10 MG/ML, 100ML IV ONE (13:00)
[2020-05-09] MEDS ORDERED: MIDAZOLAM 1 MG/ML, 2ML ONE (13:00)
[2020-05-09] MEDS ORDERED: CEFAZOLIN 1,000 MG ONE (13:00)
[2020-05-09] MEDS ORDERED: NEOSTIGMINE 1 MG/ML, 10ML ONE (13:00)
[2020-05-09] MEDS ORDERED: GLYCOPYRROLATE 0.2MG/1ML, 5ML ONE (13:00)
[2020-05-09] MEDS ORDERED: SUGAMMADEX 200 MG/2 ML IVPush ONE (13:00)
[2020-05-09] MEDS ORDERED: FENTANYL PF 100 MCG/2ML ONE ×2 (15:52→16:53)
[2020-05-09] MEDS ORDERED: OXYcodone 5 MG/5 ML ORAL.SOL UDC ONE (15:52)
[2020-05-09] MEDS ORDERED: HYDROmorphone PCA 30 MG/30 ML IV PRN (16:00)
[2020-05-09] MEDS: FENTANYL PF 100 MCG/2ML IV PRN ×3 (16:00→16:54)
[2020-05-09] MEDS ORDERED: HYDROmorphone 1 MG/ML, 1ML INJ ONE (16:44)
[2020-05-09] MEDS: HYDROmorphone 1 MG/ML, 1ML INJ IVPush PRN ×2 (16:45→16:58)
[2020-05-09] MEDS ORDERED: BISACODYL 10 MG SUPP PR PRN (18:00)
[2020-05-09] MEDS ORDERED: DIAZEPAM 5 MG TABLET PO PRN (18:00)
[2020-05-09] MEDS ORDERED: MEPERIDINE/PF 100 MG/ML IM PRN (18:00)
[2020-05-09] MEDS ORDERED: ACETAMINOPHEN 325 MG SUPP PR PRN (18:00)
[2020-05-09] MEDS ORDERED: TIZANIDINE 4MG TABLET PO PRN (18:00)
[2020-05-09] MEDS ORDERED: DIPHENHYDRAMINE 25 MG CAPSULE PO PRN (18:00)
[2020-05-09] MEDS ORDERED: DIAZEPAM 5 MG/ML, 2ML IV PRN (18:00)
[2020-05-09] MEDS ORDERED: DIPHENHYDRAMINE 50 MG/ML, 1ML IVPush PRN (18:00)
[2020-05-09] MEDS ORDERED: HYDROcodone/APAP 10/325 MG TABLET PO PRN (18:00)
[2020-05-09] MEDS ORDERED: ACETAMINOPHEN 500 MG TABLET PO PRN (18:00)
[2020-05-09] MEDS ORDERED: MAGNESIUM HYDROXIDE 8%, 30ML UDC PO PRN (18:00)
[2020-05-09] MEDS: NS + 20MEQ KCL 1,000 ML IV SCH (18:09)
[2020-05-09 20:21] VITALS: BP 121/72
[2020-05-09] MEDS: CEFAZOLIN PMX 1GM/50ML 50 ML IVPB SCH (21:00)
[2020-05-10 00:02] VITALS: BP 121/65
[2020-05-10] MEDS: ONDANSETRON 2MG/ML, 2ML IV PRN (02:07)
[2020-05-10] MEDS: NS + 20MEQ KCL 1,000 ML IV SCH ×3 (03:50→21:09)
[2020-05-10 04:06] VITALS: BP 123/78
[2020-05-10 04:30] LABS: BASOPHILS # (AUTO) 0.01 x10^3/uL (0-0.1); BASOPHILS % (AUTO) 0 % (0-1); EOSINOPHILS % (AUTO) 0 % (1-7); LYMPHOCYTES # (AUTO) 0.58 x10^3/uL (1-3.4); LYMPHOCYTES % (AUTO) 5 % (22-44); MD NO; MEAN CORPUSCULAR HEMOGLOBIN 29.5 pg (27.5-34.5); MEAN CORPUSCULAR HGB CONC 32.6 g/dL (33.2-36.2); MEAN CORPUSCULAR VOLUME 90.7 fL (81-97); MEAN PLATELET VOLUME 8.2 fL (7.4-10.4); MONOCYTES # (AUTO) 0.58 x10^3/uL (0.2-0.8); MONOCYTES % (AUTO) 5 % (2-9); NEUTROPHILS # (AUTO) 9.96 x10^3/uL (1.8-6.8); NEUTROPHILS % (AUTO) 90 % (42-75); PLATELET COUNT 173 x10^3/uL (130-400); RED BLOOD COUNT 4.82 x10^6/uL (4.38-5.82); RED CELL DISTRIBUTION WIDTH 13.8 % (9.4-14.8)
[2020-05-10 04:39] LABS: ANION GAP 4 mmol/L (5-15); CALCIUM 8.6 mg/dL (8.5-10.1); CHLORIDE 106 mmol/L (98-107); CREATININE 1.04 mg/dL (0.7-1.3)
[2020-05-10] MEDS: CEFAZOLIN PMX 1GM/50ML 50 ML IVPB SCH (05:04)
[2020-05-10] MEDS ORDERED: PANTOPRAZOLE 40MG TABLET PO SCH (06:00)
[2020-05-10 07:23] VITALS: BP 114/69
[2020-05-10] MEDS: PROMETHAZINE 25 MG/ML, 1ML IM PRN ×2 (07:25→16:12)
[2020-05-10] MEDS: OXYcodone IR 5MG TABLET PO PRN ×3 (09:16→21:04)
[2020-05-10] MEDS: GABAPENTIN 300 MG CAPSULE PO SCH (09:16)
[2020-05-10] MEDS: LOSARTAN 100 MG TAB PO SCH (09:16)
[2020-05-10] MEDS: SENNA/DOCUSATE TABLET PO SCH (09:17)
[2020-05-10] MEDS ORDERED: METOCLOPRAMIDE 10MG TABLET PO PRN (09:30)
[2020-05-10] MEDS ORDERED: PHARMACY INSTRUCTION MC PRN (09:30)
[2020-05-10] MEDS: CALCIUM CARBONATE 500 MG TAB.CHEW PO PRN ×2 (10:55→12:52)
[2020-05-10] MEDS: HYDROmorphone 1 MG/ML, 1ML INJ IVPush PRN ×2 (12:27→18:27)
[2020-05-10 14:38] VITALS: BP 111/71
[2020-05-10 18:51] VITALS: BP 95/62
[2020-05-11 00:17] VITALS: BP 129/88
[2020-05-11] MEDS: HYDROmorphone 1 MG/ML, 1ML INJ IVPush PRN ×2 (00:26→10:38)
[2020-05-11] MEDS: OXYcodone IR 5MG TABLET PO PRN ×2 (03:42→08:05)
[2020-05-11 05:41] LABS: BASOPHILS # (AUTO) 0.03 x10^3/uL (0-0.1); BASOPHILS % (AUTO) 0 % (0-1); EOSINOPHILS # (AUTO) 0.07 x10^3/uL (0-0.4); EOSINOPHILS % (AUTO) 1 % (1-7); LYMPHOCYTES # (AUTO) 0.68 x10^3/uL (1-3.4); LYMPHOCYTES % (AUTO) 8 % (22-44); MD NO; MEAN CORPUSCULAR HEMOGLOBIN 30.2 pg (27.5-34.5); MEAN CORPUSCULAR HGB CONC 33.7 g/dL (33.2-36.2); MEAN CORPUSCULAR VOLUME 89.7 fL (81-97); MEAN PLATELET VOLUME 8.6 fL (7.4-10.4); MONOCYTES # (AUTO) 0.74 x10^3/uL (0.2-0.8); MONOCYTES % (AUTO) 9 % (2-9); NEUTROPHILS # (AUTO) 7.08 x10^3/uL (1.8-6.8); NEUTROPHILS % (AUTO) 82 % (42-75); PLATELET COUNT 134 x10^3/uL (130-400); RED BLOOD COUNT 4.44 x10^6/uL (4.38-5.82); RED CELL DISTRIBUTION WIDTH 13.6 % (9.4-14.8)
[2020-05-11 05:43] LABS: CHLORIDE 110 mmol/L (98-107)
[2020-05-11] MEDS: NS + 20MEQ KCL 1,000 ML IV SCH ×3 (06:15→23:30)
[2020-05-11 06:41] VITALS: BP 121/72
[2020-05-11] MEDS: CALCIUM CARBONATE 500 MG TAB.CHEW PO PRN (08:05)
[2020-05-11] MEDS: ONDANSETRON 2MG/ML, 2ML IV PRN (08:06)
[2020-05-11] MEDS: SENNA/DOCUSATE TABLET PO SCH (08:06)
[2020-05-11] MEDS: GABAPENTIN 300 MG CAPSULE PO SCH (08:06)
[2020-05-11] MEDS: LOSARTAN 100 MG TAB PO SCH (08:06)
[2020-05-11 08:53] LABS: ANION GAP 5 mmol/L (5-15); CALCIUM 8.2 mg/dL (8.5-10.1); CREATININE 1.02 mg/dL (0.7-1.3)
[2020-05-11] MEDS ORDERED: CHLORHEXIDINE 15 ML UDC ONE (13:43)
[2020-05-11 14:00] VITALS: BP 141/64
[2020-05-11] MEDS ORDERED: CHLORHEXIDINE 15 ML UDC MM ONE (14:00)
[2020-05-11] MEDS ORDERED: ACETAMINOPHEN 500 MG TABLET PO STA (14:03)
[2020-05-11] MEDS ORDERED: GABAPENTIN 300 MG CAPSULE PO STA (14:03)
[2020-05-11] MEDS ORDERED: BUPIVACAINE/PF-EPI 0.25% 1:200K ONE ×2 (14:23→15:18)
[2020-05-11] MEDS ORDERED: VANCOMYCIN 1,000 MG ONE (14:23)
[2020-05-11] MEDS ORDERED: BACITRACIN 50,000 UNIT ONE (14:24)
[2020-05-11] MEDS ORDERED: BUPIVACAINE/PF-EPI 0.5% 1:200K ONE (14:24)
[2020-05-11] MEDS ORDERED: SCOPOLAMINE 1MG PATCH TD ONE ×2 (14:39→14:40)
[2020-05-11] MEDS ORDERED: HALOPERIDOL 5 MG/ML IV PRN (15:00)
[2020-05-11] MEDS ORDERED: OXYcodone 5 MG/5 ML ORAL.SOL UDC PO PRN (15:00)
[2020-05-11] MEDS ORDERED: FENTANYL PF 100 MCG/2ML IV PRN (15:00)
[2020-05-11] MEDS ORDERED: MEPERIDINE/PF 25MG/0.5ML IVPush PRN (15:00)
[2020-05-11] MEDS ORDERED: LABETALOL 5MG/ML, 20ML IV PRN (15:00)
[2020-05-11] MEDS ORDERED: morphine SULFATE 10 MG/ML, 1ML IVPush PRN (15:00)
[2020-05-11] MEDS ORDERED: HYDROmorphone 1 MG/ML, 1ML INJ IVPush PRN (15:00)
[2020-05-11] MEDS ORDERED: PROMETHAZINE 25 MG/ML, 1ML IVPush PRN (15:00)
[2020-05-11] MEDS ORDERED: hydrALAzine 20 MG/ML, 1ML IV PRN (15:00)
[2020-05-11] MEDS ORDERED: DEXAMETHASONE 4 MG/ML, 1ML ONE (15:08)
[2020-05-11] MEDS ORDERED: CEFAZOLIN 1,000 MG ONE (15:08)
[2020-05-11] MEDS ORDERED: PROPOFOL 10 MG/ML, 100ML IV ONE (15:08)
[2020-05-11] MEDS ORDERED: PHENYLEPHRINE 10 MG/ML ONE (15:08)
[2020-05-11] MEDS ORDERED: ROCURONIUM 10 MG/ML,10ML ONE (15:08)
[2020-05-11] MEDS ORDERED: NEOSTIGMINE 1 MG/ML, 10ML ONE (15:08)
[2020-05-11] MEDS ORDERED: ONDANSETRON 2MG/ML, 2ML ONE (15:08)
[2020-05-11] MEDS ORDERED: PROPOFOL 10 MG/ML, 20ML ONE (15:08)
[2020-05-11] MEDS ORDERED: VASOPRESSIN 20 UNIT/ML, 1ML ONE (15:08)
[2020-05-11] MEDS ORDERED: GLYCOPYRROLATE 0.2MG/1ML, 5ML ONE (15:08)
[2020-05-11] MEDS ORDERED: HEPARIN 1,000 UNITS/ML, 30ML ONE (16:47)
[2020-05-11] MEDS ORDERED: METOCLOPRAMIDE 5 MG/ML, 2ML IVPush PRN (19:30)
[2020-05-11] MEDS ORDERED: OXYcodone 5 MG/5 ML ORAL.SOL UDC ONE (19:54)
[2020-05-11] MEDS ORDERED: METOCLOPRAMIDE 5 MG/ML, 2ML ONE (20:06)
[2020-05-11] MEDS ORDERED: METHOCARBAMOL 1,000 MG in DEXTROSE 5% 100 ML IV ONE (20:30)
[2020-05-11 21:52] VITALS: BP 101/65
[2020-05-11] MEDS ORDERED: DIAZEPAM 5 MG TABLET PO PRN (23:00)
[2020-05-11] MEDS ORDERED: DIAZEPAM 5 MG/ML, 2ML IV PRN (23:00)
[2020-05-11] MEDS ORDERED: ONDANSETRON 2MG/ML, 2ML IV PRN (23:00)
[2020-05-11] MEDS ORDERED: PROMETHAZINE 25 MG/ML, 1ML IM PRN (23:00)
[2020-05-11] MEDS ORDERED: OXYcodone IR 5MG TABLET PO PRN (23:00)
[2020-05-11] MEDS ORDERED: MAGNESIUM HYDROXIDE 8%, 30ML UDC PO PRN (23:00)
[2020-05-11] MEDS ORDERED: BISACODYL 10 MG SUPP PR PRN (23:00)
[2020-05-11] MEDS ORDERED: HYDROmorphone PCA 30 MG/30 ML IV PRN (23:00)
[2020-05-11] MEDS: CEFAZOLIN PMX 1GM/50ML 50 ML IVPB SCH (23:25)
[2020-05-12] VITALS (7 sets, daily range): BP systolic 103–126; BP diastolic 57–80
[2020-05-12] MEDS: NS + 20MEQ KCL 1,000 ML IV SCH ×3 (01:35→21:21)
[2020-05-12] MEDS: OXYcodone IR 5MG TABLET PO PRN ×4 (01:39→15:35)
[2020-05-12] MEDS ORDERED: METHOCARBAMOL 750 MG in DEXTROSE 5% 100 ML IV SCH (04:00)
[2020-05-12] MEDS: CALCIUM CARBONATE 500 MG TAB.CHEW PO PRN (05:49)
[2020-05-12 05:58] LABS: BASOPHILS % (AUTO) 0 % (0-1); EOSINOPHILS % (AUTO) 0 % (1-7); LYMPHOCYTES # (AUTO) 0.45 x10^3/uL (1-3.4); LYMPHOCYTES % (AUTO) 5 % (22-44); MD NO; MEAN CORPUSCULAR HGB CONC 33.4 g/dL (33.2-36.2); MEAN CORPUSCULAR VOLUME 89.8 fL (81-97); MONOCYTES # (AUTO) 0.58 x10^3/uL (0.2-0.8); MONOCYTES % (AUTO) 7 % (2-9); NEUTROPHILS # (AUTO) 7.64 x10^3/uL (1.8-6.8); NEUTROPHILS % (AUTO) 88 % (42-75); PLATELET COUNT 133 x10^3/uL (130-400); RED BLOOD COUNT 3.91 x10^6/uL (4.38-5.82); RED CELL DISTRIBUTION WIDTH 13.3 % (9.4-14.8)
[2020-05-12 06:08] LABS: ANION GAP 3 mmol/L (5-15); CALCIUM 8.5 mg/dL (8.5-10.1); CHLORIDE 110 mmol/L (98-107); CREATININE 0.98 mg/dL (0.7-1.3)
[2020-05-12] MEDS: CEFAZOLIN PMX 1GM/50ML 50 ML IVPB SCH (06:44)
[2020-05-12] MEDS: METHOCARBAMOL 750 MG TABLET PO SCH ×4 (08:30→21:21)
[2020-05-12] MEDS: HYDROmorphone 2 MG/ML, 1ML IVPush PRN (08:43)
[2020-05-12] MEDS: LOSARTAN 100 MG TAB PO SCH (08:48)
[2020-05-12] MEDS: GABAPENTIN 300 MG CAPSULE PO SCH (08:48)
[2020-05-12] MEDS: SENNA/DOCUSATE TABLET PO SCH (08:50)
[2020-05-12] MEDS ORDERED: LANSOPRAZOLE 30 MG PO SCH ×2 (09:00)
[2020-05-12] MEDS ORDERED: PANTOPRAZOLE 40MG TABLET PO SCH (09:30)
[2020-05-13 00:27] VITALS: BP 115/70
[2020-05-13] MEDS: OXYcodone IR 5MG TABLET PO PRN ×6 (01:06→20:23)
[2020-05-13 01:07] VITALS: BP 127/72
[2020-05-13 05:33] LABS: BASOPHILS # (AUTO) 0.06 x10^3/uL (0-0.1); BASOPHILS % (AUTO) 1 % (0-1); EOSINOPHILS # (AUTO) 0.09 x10^3/uL (0-0.4); EOSINOPHILS % (AUTO) 1 % (1-7); LYMPHOCYTES # (AUTO) 0.75 x10^3/uL (1-3.4); LYMPHOCYTES % (AUTO) 10 % (22-44); MD NO; MEAN CORPUSCULAR HEMOGLOBIN 30.6 pg (27.5-34.5); MEAN CORPUSCULAR HGB CONC 33.9 g/dL (33.2-36.2); MEAN CORPUSCULAR VOLUME 90.3 fL (81-97); MEAN PLATELET VOLUME 8.3 fL (7.4-10.4); MONOCYTES # (AUTO) 0.63 x10^3/uL (0.2-0.8); MONOCYTES % (AUTO) 8 % (2-9); NEUTROPHILS # (AUTO) 6.36 x10^3/uL (1.8-6.8); NEUTROPHILS % (AUTO) 81 % (42-75); PLATELET COUNT 145 x10^3/uL (130-400); RED BLOOD COUNT 3.53 x10^6/uL (4.38-5.82); RED CELL DISTRIBUTION WIDTH 13.8 % (9.4-14.8)
[2020-05-13 05:39] LABS: CHLORIDE 110 mmol/L (98-107)
[2020-05-13 05:40] LABS: ANION GAP 3 mmol/L (5-15)
[2020-05-13] MEDS: METHOCARBAMOL 750 MG TABLET PO SCH ×4 (06:00→22:37)
[2020-05-13] MEDS: NS + 20MEQ KCL 1,000 ML IV SCH ×2 (06:35→16:08)
[2020-05-13 07:18] VITALS: BP 111/69
[2020-05-13] MEDS: DEXAMETHASONE 4 MG/ML, 1ML IVPush SCH ×3 (08:16→20:22)
[2020-05-13] MEDS: SENNA/DOCUSATE TABLET PO SCH (08:17)
[2020-05-13] MEDS: LANSOPRAZOLE 30 MG PO SCH (08:17)
[2020-05-13] MEDS: LOSARTAN 100 MG TAB PO SCH (08:17)
[2020-05-13] MEDS: GABAPENTIN 300 MG CAPSULE PO SCH (08:17)
[2020-05-13] MEDS ORDERED: HYDROmorphone 1 MG/ML, 1ML INJ ONE (12:19)
[2020-05-13] MEDS: HYDROmorphone 2 MG/ML, 1ML IVPush PRN (12:23)
[2020-05-13 15:18] VITALS: BP 121/72
[2020-05-13 21:47] VITALS: BP 129/71
[2020-05-14 00:12] VITALS: BP 127/77
[2020-05-14] MEDS: OXYcodone IR 5MG TABLET PO PRN ×8 (00:25→23:10)
[2020-05-14] MEDS: NS + 20MEQ KCL 1,000 ML IV SCH ×3 (02:00→23:00)
[2020-05-14] MEDS: DEXAMETHASONE 4 MG/ML, 1ML IVPush SCH ×4 (02:42→21:06)
[2020-05-14] MEDS ORDERED: METHOCARBAMOL 750 MG TABLET PO SCH (04:00)
[2020-05-14] MEDS: METHOCARBAMOL 750 MG TABLET PO SCH ×4 (06:21→21:06)
[2020-05-14] MEDS: LANSOPRAZOLE 30 MG PO SCH (06:21)
[2020-05-14 07:32] VITALS: BP 143/80
[2020-05-14] MEDS: GABAPENTIN 300 MG CAPSULE PO SCH (09:34)
[2020-05-14] MEDS: LOSARTAN 100 MG TAB PO SCH (09:34)
[2020-05-14] MEDS: SENNA/DOCUSATE TABLET PO SCH (09:35)
[2020-05-14 12:50] VITALS: BP 136/83
[2020-05-14] MEDS: POLYETHYLENE GLYCOL 17 GM PACKET PO PRN (13:43)
[2020-05-14 19:02] VITALS: BP 132/76
[2020-05-14] MEDS ORDERED: MAGNESIUM CITRATE 300ML ORAL SOL PO ONE (20:00)
[2020-05-15 00:12] VITALS: BP 141/79
[2020-05-15] MEDS: OXYcodone IR 5MG TABLET PO PRN ×4 (02:14→11:12)
[2020-05-15] MEDS: DEXAMETHASONE 4 MG/ML, 1ML IVPush SCH ×2 (02:58→08:25)
[2020-05-15] MEDS: METHOCARBAMOL 750 MG TABLET PO SCH ×2 (05:58→11:10)
[2020-05-15] MEDS: LANSOPRAZOLE 30 MG PO SCH (07:22)
[2020-05-15] MEDS ORDERED: METH4TAB2 PO (08:14)
[2020-05-15] MEDS ORDERED: OXYC-432 PO (08:14)
[2020-05-15] MEDS ORDERED: METH750T2 PO (08:14)
[2020-05-15 08:15] VITALS: BP 130/83
[2020-05-15] MEDS: SENNA/DOCUSATE TABLET PO SCH (08:25)
[2020-05-15] MEDS: POLYETHYLENE GLYCOL 17 GM PACKET PO PRN (08:25)
[2020-05-15] MEDS: GABAPENTIN 300 MG CAPSULE PO SCH (08:26)
[2020-05-15] MEDS: LOSARTAN 100 MG TAB PO SCH (08:26)
[2020-05-15] MEDS: NS + 20MEQ KCL 1,000 ML IV SCH (09:00)
== END 2020-05-15 12:30 | disposition home or self-care (01) | DRG 460 ==
LOC: ORIP 08:53 → EDSTATUS 12:30 → 4NE 17:35 → DCLOUNGE 05-15 12:19
PROVIDERS: ADMIT Neurological Surgery; ATTEND Neurological Surgery
PROC: 3E0V0GB Introduction of Recombinant Bone Morphogenetic Protein into Bones, Open Approach (ICD-10-PCS; 2020-05-09)
PROC: 0SG00AJ Fusion of Lumbar Vertebral Joint with Interbody Fusion Device, Posterior Approach, Anterior Column, Open Approach (ICD-10-PCS; principal; 2020-05-10)
PROC: 0SG30A0 Fusion of Lumbosacral Joint with Interbody Fusion Device, Anterior Approach, Anterior Column, Open Approach (ICD-10-PCS; 2020-05-10)
PROC: 0SB20ZZ Excision of Lumbar Vertebral Disc, Open Approach (ICD-10-PCS; 2020-05-11)
PROC: 01NB0ZZ Release Lumbar Nerve, Open Approach (ICD-10-PCS; 2020-05-11)
PROC: 01NR0ZZ Release Sacral Nerve, Open Approach (ICD-10-PCS; 2020-05-11)
PROC: 4A11X4G Monitoring of Peripheral Nervous Electrical Activity, Intraoperative, External Approach (ICD-10-PCS; 2020-05-11)
DX: M47.897 Other spondylosis, lumbosacral region (principal); M40.30 Flatback syndrome, site unspecified; K59.00 Constipation, unspecified; M47.26 Other spondylosis with radiculopathy, lumbar region; M48.062 Spinal stenosis, lumbar region with neurogenic claudication; M48.07 Spinal stenosis, lumbosacral region; M51.37 Other intervertebral disc degeneration, lumbosacral region; M43.17 Spondylolisthesis, lumbosacral region; Z20.828 Contact with and (suspected) exposure to other viral communicable diseases; M51.16 Intervertebral disc disorders with radiculopathy, lumbar region; Z88.8 Allergy status to other drugs, medicaments and biological substances; Z88.2 Allergy status to sulfonamides
CPT/HCPCS: 36415; 72100; 72131; 74018; 80048; 85025; 87635; 95938; 95941; C1713; C1776; G0378; J0690; J1100; J1170; J1644; J2250; J2405; J2550; J2704; J2710; J3010; J3360; J3370; J3480; C1762; J2370; J2765; J2800; J7120

== ENCOUNTER 2020-05-23 14:13 | Outpatient (CLI) | payer OTHER ==
[~2020-05-23 14:13] MED LIST changes: +CEFAZOLIN 1,000 MG ONE; +DEXAMETHASONE 4 MG/ML, 1ML ONE; +FENTANYL PF 100 MCG/2ML ONE; +FENTANYL PF 250 MCG/5ML ONE; +GLYCOPYRROLATE 0.2MG/1ML, 5ML ONE; +METH4TAB2 PO; +METH750T2 PO; +METOCLOPRAMIDE 5 MG/ML, 2ML ONE; +MIDAZOLAM 1 MG/ML, 2ML ONE; +NEOSTIGMINE 1 MG/ML, 10ML ONE; +ONDANSETRON 2MG/ML, 2ML ONE; +OXYC-432 PO; +PHENYLEPHRINE 10 MG/ML ONE; +PROPOFOL 10 MG/ML, 20ML ONE; +PROPOFOL 100 ML ONE; +PROPOFOL 50 ML ONE; +ROCURONIUM 10MG/ML,5ML ONE; +SUGAMMADEX 200 MG/2 ML IVPush ONE; +VASOPRESSIN 20 UNIT/ML, 1ML ONE
== END 2020-05-23 23:59 | disposition home or self-care (01) ==
LOC: RAD 14:13
PROVIDERS: ATTEND Neurological Surgery
DX: M47.816 Spondylosis without myelopathy or radiculopathy, lumbar region (principal); M48.061 Spinal stenosis, lumbar region without neurogenic claudication; I10 Essential (primary) hypertension; E78.2 Mixed hyperlipidemia
CPT/HCPCS: 72131; 72192; J2704; J3010; 72100; J0690; J1100; J2250; J2405; J2710; J2370; J2765

== ENCOUNTER → 2020-06-02 | Outpatient (CLI) | payer OTHER ==
[~2020-06-02] MED LIST changes: -CEFAZOLIN 1,000 MG ONE; -DEXAMETHASONE 4 MG/ML, 1ML ONE; -FENTANYL PF 100 MCG/2ML ONE; -FENTANYL PF 250 MCG/5ML ONE; -GLYCOPYRROLATE 0.2MG/1ML, 5ML ONE; -METOCLOPRAMIDE 5 MG/ML, 2ML ONE; -MIDAZOLAM 1 MG/ML, 2ML ONE; -NEOSTIGMINE 1 MG/ML, 10ML ONE; -ONDANSETRON 2MG/ML, 2ML ONE; -PHENYLEPHRINE 10 MG/ML ONE; -PROPOFOL 10 MG/ML, 20ML ONE; -PROPOFOL 100 ML ONE; -PROPOFOL 50 ML ONE; -ROCURONIUM 10MG/ML,5ML ONE; -SUGAMMADEX 200 MG/2 ML IVPush ONE; -VASOPRESSIN 20 UNIT/ML, 1ML ONE
[2020-06-02 12:04] LABS: BASOPHILS # (AUTO) 0.01 x10^3/uL (0-0.1); BASOPHILS % (AUTO) 0 % (0-1); EOSINOPHILS % (AUTO) 4 % (1-7); LYMPHOCYTES # (AUTO) 0.73 x10^3/uL (1-3.4); LYMPHOCYTES % (AUTO) 15 % (22-44); MD NO; MEAN CORPUSCULAR HEMOGLOBIN 29.3 pg (27.5-34.5); MEAN CORPUSCULAR HGB CONC 33.5 g/dL (33.2-36.2); MEAN CORPUSCULAR VOLUME 87.5 fL (81-97); MEAN PLATELET VOLUME 7.3 fL (7.4-10.4); MONOCYTES # (AUTO) 0.37 x10^3/uL (0.2-0.8); MONOCYTES % (AUTO) 8 % (2-9); NEUTROPHILS # (AUTO) 3.43 x10^3/uL (1.8-6.8); NEUTROPHILS % (AUTO) 72 % (42-75); PLATELET COUNT 215 x10^3/uL (130-400); RED BLOOD COUNT 3.83 x10^6/uL (4.38-5.82); RED CELL DISTRIBUTION WIDTH 13.8 % (9.4-14.8)
== END | disposition home or self-care (01) ==
LOC: CFH 07:36
PROVIDERS: ATTEND Neurological Surgery
DX: T81.40XA Infection following a procedure, unspecified, initial encounter (principal); Y83.9 Surgical procedure, unspecified as the cause of abnormal reaction of the patient, or of later complication, without mention of misadventure at the time of the procedure; Y92.89 Other specified places as the place of occurrence of the external cause
CPT/HCPCS: 36415; 80051; 85025

== ENCOUNTER → 2020-06-05 | Outpatient (CLI) | payer OTHER | END | disposition home or self-care (01) | LOC: RAD 16:17 | PROVIDERS: ATTEND Neurological Surgery | DX: M51.35 Other intervertebral disc degeneration, thoracolumbar region (principal); M48.05 Spinal stenosis, thoracolumbar region; M48.07 Spinal stenosis, lumbosacral region | CPT/HCPCS: 72148 ==

== ENCOUNTER → 2020-07-10 | Outpatient (CLI) | payer OTHER ==
[~2020-07-10] MED LIST changes: +GADOTERATE 10 MMOL/20 ML SYR ONE; -OXYC-432 PO; +OXYC1TAB18 PO
== END | disposition home or self-care (01) ==
LOC: CFH 10:35
PROVIDERS: ATTEND Nurse Practitioner Family
DX: M51.34 Other intervertebral disc degeneration, thoracic region (principal); M51.24 Other intervertebral disc displacement, thoracic region; M25.78 Osteophyte, vertebrae; M50.30 Other cervical disc degeneration, unspecified cervical region; M48.07 Spinal stenosis, lumbosacral region
CPT/HCPCS: 72157; 72158; A9575

== ENCOUNTER → 2020-10-11 | Outpatient (CLI) | payer OTHER ==
[~2020-10-11] MED LIST changes: -GADOTERATE 10 MMOL/20 ML SYR ONE
== END | disposition home or self-care (01) ==
LOC: CFH 09:03
PROVIDERS: ATTEND Registered Nurse Registered Nurse First Assistant
DX: M43.27 Fusion of spine, lumbosacral region (principal); M51.16 Intervertebral disc disorders with radiculopathy, lumbar region
CPT/HCPCS: 72110

== ENCOUNTER → 2020-11-29 | Outpatient (CLI) | payer OTHER ==
[~2020-11-29] MED LIST changes: -CYCL-259 PO; +CYCL10TA2 PO; +HYDR-1067 PO; -HYDR-3240 PO; +METH-640 PO; -METH750T2 PO
== END | disposition home or self-care (01) ==
LOC: CFH 08:39
PROVIDERS: ATTEND Neurological Surgery
DX: M43.27 Fusion of spine, lumbosacral region (principal); M51.9 Unspecified thoracic, thoracolumbar and lumbosacral intervertebral disc disorder
CPT/HCPCS: 72131

== ENCOUNTER → 2021-03-13 | Outpatient (CLI) | payer OTHER ==
[~2021-03-13] MED LIST changes: -HYDR-1067 PO; +HYDR-2214 PO
== END | disposition home or self-care (01) ==
LOC: RAD 07:20
PROVIDERS: ATTEND Nurse Practitioner
DX: M50.122 Cervical disc disorder at C5-C6 level with radiculopathy (principal); M48.02 Spinal stenosis, cervical region; M47.22 Other spondylosis with radiculopathy, cervical region; M51.16 Intervertebral disc disorders with radiculopathy, lumbar region; N28.1 Cyst of kidney, acquired; N26.1 Atrophy of kidney (terminal)
CPT/HCPCS: 72050; 72141; 72148

== ENCOUNTER 2021-06-12 09:49 | Outpatient (CLI) | payer OTHER ==
[2021-06-12 10:25] LABS: ALANINE AMINOTRANSFERASE 54 U/L (12-78); ALBUMIN 3.9 g/dL (3.4-5.0); ANION GAP 6 mmol/L (5-15); CALCIUM 8.6 mg/dL (8.5-10.1); CHLORIDE 108 mmol/L (98-107); CHOLESTEROL, TOTAL 193 mg/dL (140-239); CREATININE 0.99 mg/dL (0.7-1.3)
[2021-06-12 10:30] LABS: ALKALINE PHOSPHATASE 93 U/L (45-117); BILIRUBIN,TOTAL 0.9 mg/dL (0.2-1.0); CHOL/HDL RATIO 4.6; HDL CHOL % 22 % (26-37); HDL CHOLESTEROL (DIRECT) 42 mg/dL (40-60); LDL CHOLESTEROL,CALCULATED 119 mg/dL (54-169); LDL/HDL RATIO 2.8 (0.5-3.0); TOTAL PROTEIN 7.3 g/dL (6.4-8.2); TRIGLYCERIDES 161 mg/dL (50-200); VLDL CHOLESTEROL 32 mg/dL (0-25)
== END 2021-06-12 23:59 | disposition home or self-care (01) ==
LOC: LAB 09:49
PROVIDERS: ATTEND Family Medicine
DX: Z12.5 Encounter for screening for malignant neoplasm of prostate (principal); I10 Essential (primary) hypertension; E55.9 Vitamin D deficiency, unspecified
CPT/HCPCS: 36415; 80053; 80061; 82043; 82306; 84153; G0103

== ENCOUNTER 2021-06-27 07:28 | Outpatient (CLI) | payer OTHER | END 2021-06-27 23:59 | disposition home or self-care (01) | LOC: STAR 07:28 | PROVIDERS: ATTEND Orthopaedic Surgery | DX: Z01.812 Encounter for preprocedural laboratory examination (principal); Z20.822 Contact with and (suspected) exposure to COVID-19; M18.11 Unilateral primary osteoarthritis of first carpometacarpal joint, right hand; M65.341 Trigger finger, right ring finger; M65.331 Trigger finger, right middle finger | CPT/HCPCS: 93005; U0003; U0005 ==

== ENCOUNTER 2021-07-03 10:00 | Day surgery (SDC) | payer OTHER ==
[~2021-07-03] VITALS: Ht 180.3 cm; Wt 95.9 kg
[2021-07-03 10:30] VITALS: BP 144/91
[2021-07-03] MEDS ORDERED: CHLORHEXIDINE 15 ML UDC PO ONE (10:30)
[2021-07-03] MEDS ORDERED: LACTATED RINGERS 1,000 ML IV SCH (10:30)
[2021-07-03] MEDS ORDERED: BUPIVACAINE/PF 0.5% ONE (11:48)
[2021-07-03] MEDS ORDERED: VANCOMYCIN 1,000 MG ONE (11:49)
[2021-07-03] MEDS ORDERED: FENTANYL PF 100 MCG/2ML ONE ×2 (12:05→13:36)
[2021-07-03] MEDS ORDERED: ONDANSETRON 2MG/ML, 2ML IVPush PRN (12:30)
[2021-07-03] MEDS ORDERED: HYDROcodone/APAP 7.5-325MG/15ML UDC PO PRN (12:30)
[2021-07-03] MEDS ORDERED: MEPERIDINE/PF 25MG/0.5ML IVPush PRN (12:30)
[2021-07-03] MEDS ORDERED: PROMETHAZINE 25 MG/ML, 1ML IVPush PRN (12:30)
[2021-07-03] MEDS ORDERED: OXYcodone 5 MG/5 ML ORAL.SOL UDC PO PRN (12:30)
[2021-07-03] MEDS ORDERED: ONDANSETRON 2MG/ML, 2ML ONE (12:57)
[2021-07-03] MEDS ORDERED: PROPOFOL 10 MG/ML, 20ML ONE (12:57)
[2021-07-03] MEDS ORDERED: CEFAZOLIN 1,000 MG ONE (12:57)
[2021-07-03] MEDS ORDERED: DEXAMETHASONE 4 MG/ML, 1ML ONE (12:57)
[2021-07-03] MEDS: FENTANYL PF 100 MCG/2ML IV PRN ×2 (13:35→13:43)
[2021-07-03] MEDS ORDERED: OXYcodone 5 MG/5 ML ORAL.SOL UDC ONE (13:36)
[2021-07-03] MEDS ORDERED: HYDROmorphone 2 MG/ML, 1ML ONE (13:47)
[2021-07-03] MEDS: HYDROmorphone 1 MG/ML, 1ML INJ IVPush PRN ×2 (13:55→14:10)
[2021-07-03] MEDS ORDERED: ACETAMINOPHEN 325 MG TABLET ONE (15:07)
[2021-07-03] MEDS ORDERED: ACETAMINOPHEN 325 MG TABLET PO PRN (15:30)
== END 2021-07-03 15:45 | disposition home or self-care (01) ==
LOC: OR 10:00
PROVIDERS: ATTEND Orthopaedic Surgery
DX: M18.11 Unilateral primary osteoarthritis of first carpometacarpal joint, right hand (principal); M65.331 Trigger finger, right middle finger; M65.341 Trigger finger, right ring finger; I10 Essential (primary) hypertension; K21.9 Gastro-esophageal reflux disease without esophagitis; N31.9 Neuromuscular dysfunction of bladder, unspecified; Z79.82 Long term (current) use of aspirin; Z79.891 Long term (current) use of opiate analgesic; Z79.899 Other long term (current) drug therapy; Z88.2 Allergy status to sulfonamides; Z88.8 Allergy status to other drugs, medicaments and biological substances; Z98.1 Arthrodesis status; Z98.890 Other specified postprocedural states
CPT/HCPCS: 25447; 26055; 26480; 73140; C1713; J0690; J1100; J1170; J2405; J2704; J3010; J7120; 76000; J3370